=== PATIENT | male | born 1960 | race Caucasian/White ===

== ENCOUNTER 2017-05-06 02:46 | Observation (INO) ==
[2017-05-06] MEDS ORDERED: NITROGLYCERIN 2% OINT 1 INCH/GM PACK TOP STA ×2 (04:12→05:59)
[2017-05-06] MEDS ORDERED: ONDANSETRON 4 MG/2 ML VIAL IV STA (04:12)
[2017-05-06] MEDS ORDERED: MORPHINE 2 MG/1 ML SYRINGE IV STA (04:12)
[2017-05-06] MEDS ORDERED: ASPIRIN 325 MG TABLET PO STA (04:12)
[2017-05-06] MEDS ORDERED: METOPROLOL TARTRATE 25 MG TABLET PO STA (04:12)
[2017-05-06] MEDS ORDERED: ALUM/MAG/SIMETH/LIDO VISC 1:1 30 ML BOTTLE PO STA (04:12)
[2017-05-06 05:28] LABS: Basophils % 0.6 % (0.0-0.8); Eosinophils # 0.3 10*3/uL (0.0-0.87); Eosinophils % 5.2 % (0.00-10.9); Hematocrit 42.2 VOL% (42.0-52.0); Hemoglobin 14.3 GM/DL (14.0-18.0); Immature Granulocytes % 0.2 %; Immature Granulocytes Absolute 0.01 #; Lymphocytes # 2.5 10*3/uL (1.4-4.0); Lymphocytes % 39.2 % (21.2-54.2); Mean Corpuscular HGB Conc 33.9 GM/DL (32-36); Mean Corpuscular Hemoglobin 33 PG (27-34); Mean Corpuscular Volume 97.9 FL (87-102); Mean Platelet Volume 9.6 FL (9.6-12.0); Monocytes # 0.7 10*3/uL (0.11-0.8); Monocytes % 10.2 % (1.7-12.7); Neutrophils # 2.9 10*3/uL (1.4-7.4); Neutrophils % 44.6 % (38.7-73.9); Platelet Count 232 T/CUMM (130-400); Red Blood Count 4.31 MC/CUMM (3.8-5.5); Red Cell Distribution Width 12.3 % (9.3-17.3); White Blood Count 6.4 T/CUMM (4-12)
[2017-05-06 05:39] LABS: PT Patient Result 10.2 SECS
[2017-05-06 05:48] LABS: Albumin 3.8 G/DL (3.4-5.0); Bilirubin,Total 0.5 MG/DL (0.2-1.0); Magnesium 2.1 MG/DL (1.8-2.4); Osmolality,Calculated 279.5 MOS/KG (273-304); Potassium 3.9 MMOL/L (3.5-5.1); Total Protein 7.1 G/DL (6.4-8.3)
[2017-05-06] MEDS ORDERED: NITROGLYCERIN 2% OINT 1 INCH/GM PACK TOP ONE (05:53)
[2017-05-06] MEDS ORDERED: ALUM/MAG/SIMETH/LIDO VISC 1:1 30 ML BOTTLE PO ONE (05:54)
[2017-05-06] MEDS ORDERED: METOPROLOL TARTRATE 25 MG TABLET ONE (05:54)
[2017-05-06] MEDS ORDERED: ONDANSETRON 4 MG/2 ML VIAL ONE (05:54)
[2017-05-06] MEDS ORDERED: ASPIRIN 325 MG TABLET ONE (05:54)
[2017-05-06] MEDS ORDERED: MORPHINE 2 MG/1 ML SYRINGE ONE (05:54)
[2017-05-06] MEDS ORDERED: SIMETHICONE CHEW 125 MG TABLET PO PRN (08:33)
[2017-05-06] MEDS ORDERED: ONDANSETRON 4 MG/2 ML VIAL IV PRN (08:33)
[2017-05-06] MEDS ORDERED: MORPHINE 2 MG/1 ML SYRINGE IV PRN (08:33)
[2017-05-06] MEDS ORDERED: SODIUM CHLORIDE 0.9% 1,000 ML IV SCH (08:33)
[2017-05-06 08:58] LABS: Risk Ratio 4.56; VLDL CHOLESTEROL 39.4 MG/DL
[2017-05-06] MEDS ORDERED: ENOXAPARIN 40 MG/0.4 ML SYRINGE SUBCUT SCH (09:00)
[2017-05-06] MEDS ORDERED: DOCUSATE SODIUM 100 MG CAPSULE PO SCH (09:00)
[2017-05-06] MEDS ORDERED: PANTOPRAZOLE 40 MG TABLET PO SCH (09:00)
[2017-05-06 12:22] VITALS: BP 137/81
[2017-05-06] MEDS ORDERED: ATORVASTATIN 20 MG TABLET PO SCH (21:00)
== END 2017-05-06 15:00 | disposition home or self-care (01) ==
LOC: N.EDINP 02:46 → N.ED 02:46 → N.EDINP 07:49 → N.5E 08:11
PROVIDERS: ADMIT Internal Medicine Infectious Disease; ATTEND Internal Medicine Infectious Disease